=== PATIENT | male | born 1960 | race Caucasian/White ===

== ENCOUNTER 2020-08-12 14:53 | Emergency (ER) | payer MEDICAID, MEDICARE ==
[~2020-08-12] VITALS: Ht 172.7 cm; Wt 84.8 kg
[2020-08-12 15:01] VITALS: BP 134/96
== END 2020-08-12 15:42 | disposition home or self-care (01) ==
LOC: ER 14:54
DX: F15.90 Other stimulant use, unspecified, uncomplicated (principal); F17.200 Nicotine dependence, unspecified, uncomplicated
CPT/HCPCS: 99281

== ENCOUNTER 2021-12-22 18:29 | Emergency (ER) | payer MEDICARE ==
[~2021-12-22] VITALS: Ht 175.3 cm; Wt 90.9 kg
[2021-12-22 18:48] VITALS: BP 161/79
[2021-12-22] MEDS ORDERED: ceFAZolin 1gm IM kit IM STA ×2 (20:32→20:37)
[2021-12-22] MEDS ORDERED: SULF1TAB45 PO (20:35)
[2021-12-22] MEDS ORDERED: sulfamethoxazole/trimethoprim DS (800/160mg) tablet PO ONE ×2 (20:35→20:40)
[2021-12-22] MEDS ORDERED: CEPH-585 PO (20:35)
== END 2021-12-22 20:53 | disposition home or self-care (01) ==
LOC: ER 18:30
DX: L03.113 Cellulitis of right upper limb (principal); F17.200 Nicotine dependence, unspecified, uncomplicated; Z79.2 Long term (current) use of antibiotics; Z79.899 Other long term (current) drug therapy
CPT/HCPCS: 73120; 96372; 99283; J0690